=== PATIENT | male | born 1965 | race Hispanic/Latino ===

== ENCOUNTER 2018-07-22 15:15 | Emergency (ER) | payer OTHER ==
[~2018-07-22] VITALS: Ht 182.9 cm; Wt 97.1 kg
[2018-07-22 17:19] VITALS: BP 169/89; TEMP 97.6
== END 2018-07-22 17:19 | disposition home or self-care (01) ==
LOC: ED 15:15
DX: H16.133 Photokeratitis, bilateral (principal); W89.8XXA Exposure to other man-made visible and ultraviolet light, initial encounter
CPT/HCPCS: 99283